=== PATIENT | female | born 1945 | race Caucasian/White ===

== ENCOUNTER 2016-11-04 11:01 | Inpatient (IN) | payer MEDICARE ==
--- NOTE | ~2016-11-04 | OP ---
Record Of Operation [facility] [address] [place]. 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 POSTOPERATIVE DIAGNOSIS: Right leg claudication with known occlusion of the right common external iliac artery. SURGERY PERFORMED: Left femoral to right femoral bypass using 7 mm Fallentimber-Anam ring graft. JOCKEY AGENT: Narendra. DESCRIPTION OF PROCEDURE: The patient was placed under general endotracheal anesthesia. Legs were prepped and draped in a sterile fashion. Bilateral vertical incisions were made over the common femoral vessels. The common femoral, profunda, and SFA were encircled bilaterally. On the left side, she was found to have a high bifurcation requiring partial division of the inguinal ligament. When these were all exposed, she was given 5000 units of heparin. A tunnel was created in the subcutaneous tissue from the right to the left side. A 7 mm ring Fallentimber-Anam graft was pulled through the tunnel. The left common femoral, profunda, and SFA were occluded. Arteriotomy made in the common and extended over the profunda. End-to-side anastomosis carried out with the Hemaseel suture #6. When this was completed, a clamp was placed on the graft, retrograde and prograde flushing carried out. The anastomosis in the suture tied. The right femoral vessels were then occluded similarly of the common femoral, superficial profunda. Arteriotomy made in the common, extended over the profunda, and end-to-side anastomosis done again with HS #6 suture. When this was completed, retrograde and prograde flushing carried out, suture tied, and then the clamps were all released restoring flow to the right lower extremity through the femoral-femoral graft. Irrigation carried out. Hemostasis was achieved. The wound was then closed using 2 0 and 3-0 Vicryl for the subcutaneous tissue. Both deep and superficial, skin closed with 4 0 Monocryl subcuticular suture and Dermabond dressing was applied. ESTIMATED BLOOD LOSS: 100 mL. Sponge and needle count correct x3. She went to the recovery room in satisfactory condition. MG/MODL Josse Roland M.D. / [id number] Record Of [address] [address] NAME: DARNELL SUMMERS : 41 STATUS : ADM IN [facility]#: [id number] AGE: 71 ADM/REG DATE : 11/04/16 MR#: [id number] REPORT SERV DATE: 11/05/16 DICTATED BY: JOSSE ROLAND DATE: 11/05/16 REPORT STATUS : Draft TRANSCRIBED BY: ANTONIETA DATE: 11/05/16 CC: Josse Roland M.D.
[~2016-11-04 11:01] MED LIST: ASAB PO; CALCIUM/MAG/ZINC; CALTRA600D PO; HYDROCHLOROT12.5 MG PO; LIPITOR10 PO; LOP50 PO; MULTIVITAMI1 PO; VITAMIN B-121000 MC1 SL; VITAMIN D2000 UNIT PO; VITC500 PO
[2016-11-04 11:37] LABS: ASCORBIC ACID (UR NOT ORDER) 40 (NEG); BILIRUBIN, URINE NEGATIVE (NEG); KETONE, URINE NEGATIVE (NEG); LEUKOCYTE ESTERASE(NOT OR NEG (NEG); WBC (NOT ORDERED) (RFLEX) 1 (0-5)
[2016-11-04 11:45] LABS: BASOPHILS 0.3 %; BASOPHILS ABSOLUTE 0.02 10/3/uL (0.0-0.16); EOSINOPHILS 1.4 %; EOSINOPHILS ABSOLUTE 0.11 10/3/uL (0.0-0.53); HEMATOCRIT 38.9 % (36.0-48.0); HEMOGLOBIN 12.9 g/dL (12.0-16.0); IMMATURE GRANULOCYTES 0.1 %; IMMATURE GRANULOCYTES ABSOLUTE 0.01 10/3/uL (0.0-0.11); LYMPHOCYTES 33.3 %; LYMPHOCYTES ABSOLUTE 2.64 10/3/uL (0.67-4.30); MEAN CORPUS HGB CONC 33.2 g/dL (32.0-36.0); MEAN CORPUSCULAR HEMOGLOB 29.7 pg (26.0-34.0); MEAN CORPUSCULAR VOLUME 89.6 fL (80-100); MEAN PLATELET VOLUME 9.5 fL (9.2-13.0); MONOCYTES 5.3 %; MONOCYTES ABSOLUTE 0.42 10/3/uL (0.21-1.20); NEUTROPHILS 59.6 %; NEUTROPHILS ABSOLUTE 4.73 10/3/uL (2.02-8.40); PLATELET COUNT 286 10/3/uL (150-400); RBC DISTRIBUTION WIDTH 13.4 % (12.0-16.0); RED CELL COUNT 4.34 10/6/uL (4.0-5.6); WHITE BLOOD CELLS 7.9 10/3/uL (4.5-10.5)
[2016-11-04 11:46] LABS: MANUAL DIFF NO %
[2016-11-04 11:58] LABS: BUN (BLOOD UREA NITROGEN) 17 MG/DL (6-23); CALCIUM, SERUM 9.4 MG/DL (8.5-10.4); CHLORIDE, SERUM 105 MMOL/L (96-112); CO2 (CARBON DIOXIDE) 32 MMOL/L (24-34); GFR AFRICAN AMERICAN 105 ML/MIN (>=60); GFR NON AFRICAN AMERICAN 90 ML/MIN (>=60); GLUCOSE, SERUM 88 MG/DL (60-99); POTASSIUM, SERUM 3.5 MMOL/L (3.5-5.3); SODIUM, SERUM 142 MMOL/L (135-148)
[2016-11-04 21:28] LABS: BASOPHILS 0.1 %; BASOPHILS ABSOLUTE 0.01 10/3/uL (0.0-0.16); EOSINOPHILS 0 %; HEMATOCRIT 33.5 % (36.0-48.0); HEMOGLOBIN 11.2 g/dL (12.0-16.0); IMMATURE GRANULOCYTES 0.3 %; IMMATURE GRANULOCYTES ABSOLUTE 0.03 10/3/uL (0.0-0.11); LYMPHOCYTES 8.4 %; LYMPHOCYTES ABSOLUTE 0.87 10/3/uL (0.67-4.30); MANUAL DIFF NO %; MEAN CORPUS HGB CONC 33.4 g/dL (32.0-36.0); MEAN CORPUSCULAR HEMOGLOB 29.7 pg (26.0-34.0); MEAN CORPUSCULAR VOLUME 88.9 fL (80-100); MEAN PLATELET VOLUME 9.4 fL (9.2-13.0); MONOCYTES 1.1 %; MONOCYTES ABSOLUTE 0.11 10/3/uL (0.21-1.20); NEUTROPHILS 90.1 %; NEUTROPHILS ABSOLUTE 9.36 10/3/uL (2.02-8.40); PLATELET COUNT 247 10/3/uL (150-400); RBC DISTRIBUTION WIDTH 13.4 % (12.0-16.0); RED CELL COUNT 3.77 10/6/uL (4.0-5.6); WHITE BLOOD CELLS 10.4 10/3/uL (4.5-10.5)
[2016-11-04 21:42] LABS: BUN (BLOOD UREA NITROGEN) 14 MG/DL (6-23); CHLORIDE, SERUM 108 MMOL/L (96-112); CREATININE 0.75 MG/DL (0.55-1.02); GFR AFRICAN AMERICAN 92 ML/MIN (>=60); GFR NON AFRICAN AMERICAN 79 ML/MIN (>=60); POTASSIUM, SERUM 3.7 MMOL/L (3.5-5.3); SODIUM, SERUM 144 MMOL/L (135-148)
[2016-11-04 21:43] LABS: CALCIUM, SERUM 8.4 MG/DL (8.5-10.4); CO2 (CARBON DIOXIDE) 23 MMOL/L (24-34); GLUCOSE, SERUM 137 MG/DL (60-99)
[2016-11-05 04:19] LABS: HEMATOCRIT 32.6 % (36.0-48.0); HEMOGLOBIN 10.6 g/dL (12.0-16.0); MEAN CORPUS HGB CONC 32.5 g/dL (32.0-36.0); MEAN CORPUSCULAR HEMOGLOB 29.3 pg (26.0-34.0); MEAN CORPUSCULAR VOLUME 90.1 fL (80-100); MEAN PLATELET VOLUME 9.4 fL (9.2-13.0); PLATELET COUNT 255 10/3/uL (150-400); RBC DISTRIBUTION WIDTH 13.3 % (12.0-16.0); RED CELL COUNT 3.62 10/6/uL (4.0-5.6); WHITE BLOOD CELLS 8.8 10/3/uL (4.5-10.5)
[2016-11-05 04:28] LABS: MANUAL DIFF YES %
[2016-11-05 04:31] LABS: BUN (BLOOD UREA NITROGEN) 13 MG/DL (6-23); CHLORIDE, SERUM 109 MMOL/L (96-112); CO2 (CARBON DIOXIDE) 24 MMOL/L (24-34); GFR AFRICAN AMERICAN 100 ML/MIN (>=60); GFR NON AFRICAN AMERICAN 86 ML/MIN (>=60); GLUCOSE, SERUM 164 MG/DL (60-99); POTASSIUM, SERUM 3.9 MMOL/L (3.5-5.3); SODIUM, SERUM 145 MMOL/L (135-148)
[2016-11-05 04:32] LABS: CALCIUM, SERUM 8.3 MG/DL (8.5-10.4)
[2016-11-05 07:31] LABS: BAND NEUTROPHILS 25 %; LYMPHOCYTES 6 %; LYMPHOCYTES ABSOLUTE (CALC) 0.53 10/3/uL (0.67-4.30); MONOCYTES 3 %; MONOCYTES ABSOLUTE (CALC) 0.26 10/3/uL (0.21-1.20); NEUTROPHILS ABSOLUTE (CALC) 8.01 10/3/uL (2.02-8.40); PLATELET ESTIMATE ADQ (ADEQUATE); RBC MORPHOLOGY NORM (NORMAL); SEGMENTED NEUTROPHIL (0) 66 %; TOTAL NUCLEATED CELLS 100
== END 2016-11-06 12:26 | disposition home or self-care (01) | DRG 253 ==
LOC: SDC/OF 11:01 → CVICU 18:45 → 2SO 11-05 10:27
PROVIDERS: Surgery Vascular Surgery
PROC: 041L4ZJ Bypass Left Femoral Artery to Left Femoral Artery, Percutaneous Endoscopic Approach (ICD-10-PCS; principal; 2016-11-04 13:45)
DX: I70.211 Atherosclerosis of native arteries of extremities with intermittent claudication, right leg (principal); I74.5 Embolism and thrombosis of iliac artery; J44.9 Chronic obstructive pulmonary disease, unspecified; I10 Essential (primary) hypertension; K21.9 Gastro-esophageal reflux disease without esophagitis
CPT/HCPCS: 36415; 71010; 80048; 81001; 85025; 86850; 86900; 86901; 87641; 93005; A9270-GY; C1768; J0690; J2250; J2270; J2370; J2405; J2710; J3010